=== PATIENT | female | born 1970 | race African-American/Black ===

== ENCOUNTER 2018-09-18 01:54 | Emergency (ER) | payer OTHER ==
[~2018-09-18] VITALS: Ht 167.6 cm; Wt 55.3 kg
[~2018-09-18 01:54] MED LIST: ALEVE220 MG PO; FOLIC ACID1 MG PO; HUMERA INJECTION; MEDROLDOSEPACK PO; MOBIC15 MG PO; NORCO 5-325 TA1 EACH PO; PERCOCET 5-3251 EACH PO; PHENERGAN 25 MG25 M1 PO; TRAMADOL 50 MG50 MG; TRAMADOL 50 MG50 MG PO; TREXALL10 MG PO; ULTRAM 50MG TAB50 MG PO; VITAMIN D10000 UNIT PO
[2018-09-18] MEDS ORDERED: OXYCODONE PO (01:59)
[2018-09-18] MEDS ORDERED: XELJANZ5 MG PO (01:59)
[2018-09-18] MEDS ORDERED: METHOTREXATE 22.5 MG PO (02:00)
[2018-09-18] MEDS ORDERED: NAPROSYN500 MG PO (02:00)
[2018-09-18 02:59] LABS: BASOPHILS 0.5 % (0.0-2.0); EOSINOPHILS 1.1 % (0.0-3.0); HEMATOCRIT 37.8 % (37.0-47.0); HEMOGLOBIN 12.5 gm/dL (12.0-15.0); LYMPHOCYTES 41.7 % (24.0-44.0); MCH 27.7 pg (26.0-34.0); MCHC 33.1 g/dL (28.0-37.0); MCV 83.8 fL (80.0-100.0); MONOCYTES 6.8 % (1.0-8.0); PLATELET COUNT 370 thou/uL (150-400); POLYS 49.9 % (36.0-66.0); RBC 4.51 mil/uL (4.20-5.00); RDW 14.3 % (10.5-14.5)
[2018-09-18 03:15] LABS: ANION GAP 9 mmol/L (7-16); CALCIUM 9.7 mg/dL (8.5-10.1); CHLORIDE 101 mmol/L (98-107); CO2 29 mmol/L (21-32); CREATININE 0.9 mg/dL (0.6-1.0); GLUCOSE 103 mg/dL (74-106); SODIUM 139 mmol/L (136-145); TROPONIN-I <0.06 ng/mL (<0.06)
[2018-09-18 03:17] LABS: BUN 20 mg/dL (7-18)
[2018-09-18 05:42] VITALS: BP 150/100
--- NOTE | 2018-09-19 11:39 | EKG ---
[address] [address] [place] [address] ELECTROCARDIOGRAM REPORT Name: CHARISSE VALVERDE [facility]: [facility] [id number] ������������������ Admission: 09/18/18 ������������������ Attend Phys: Discharge: 09/18/18 ������������������ Date of : 74 Report #: [id number] ����������������������������������������������������������������� [id number] THIS REPORT FOR: //name// [facility] ED Test Date: 2018-09-18 Test Time: 02:11:07 Pat Name: CHARISSE VALVERDE Department: Room: Gender: F Assistant Associate Full Professor: ganga : 1970 Requested By: Eliazar Goss Order Number: [id number] MD: Cristian Stark Measurements Intervals [place] Rate: 71 P: 47 CT: 143 QRS: 53 QRSD: 86 T: 50 QT: 408 QTc: 444 Interpretive Statements Sinus rhythm ST elev, probable normal early repol pattern No previous ECG available for comparison Electronically Signed On 09-19-2018 11:39:34 CDT by Cristian Stark [email or web address] ��������������������������������������������� <ELECTRONICALLY SIGNED> ���������������������������������������� By: Cristian Stark MD, [facility] ��������������������������������������������� 09/19/18 1139 0211 0 Cristian Stark MD, FACC /EPI
== END 2018-09-18 05:45 | disposition home or self-care (01) ==
LOC: ER 01:54
PROVIDERS: Emergency Medicine
DX: R07.89 Other chest pain (principal); I10 Essential (primary) hypertension; E11.9 Type 2 diabetes mellitus without complications; I25.2 Old myocardial infarction; I48.91 Unspecified atrial fibrillation; M06.9 Rheumatoid arthritis, unspecified; Z88.8 Allergy status to other drugs, medicaments and biological substances; Z87.442 Personal history of urinary calculi; Z90.710 Acquired absence of both cervix and uterus

== ENCOUNTER 2019-02-15 08:21 | Emergency (ER) | payer OTHER ==
[~2019-02-15] VITALS: Ht 167.6 cm; Wt 57.1 kg
[~2019-02-15 08:21] MED LIST changes: +METHOTREXATE 22.5 MG PO; +NAPROSYN500 MG PO; +OXYCODONE PO; +XELJANZ5 MG PO
[2019-02-15 09:32] VITALS: BP 146/96
== END 2019-02-15 09:33 | disposition home or self-care (01) ==
LOC: ER 08:21
DX: S83.8X2A Sprain of other specified parts of left knee, initial encounter (principal); M06.9 Rheumatoid arthritis, unspecified; Z88.4 Allergy status to anesthetic agent; Z88.8 Allergy status to other drugs, medicaments and biological substances; Z87.442 Personal history of urinary calculi; Z90.710 Acquired absence of both cervix and uterus; X50.1XXA Overexertion from prolonged static or awkward postures, initial encounter; Y92.89 Other specified places as the place of occurrence of the external cause; Y93.89 Activity, other specified; Y99.8 Other external cause status